=== PATIENT | male | born 1985 | race Hispanic/Latino ===

== ENCOUNTER 2018-12-29 05:47 | Emergency (ER) | payer BC, OTHER ==
[~2018-12-29 05:47] MED LIST: CLIN300C9 PO; METO25TA6 PO
[2018-12-29] MEDS ORDERED: SODIUM CHLORIDE 0.9% 1000ML 1,000 ML IV ONE ×2 (06:16→07:11)
[2018-12-29] MEDS ORDERED: CLINDAMYCIN 600 MG/D5% WATER 50 ML IV ONE (06:18)
[2018-12-29 06:32] LABS: BILIRUBIN,URINE Negative (NEGATIVE); COLOR,URINE Yellow (YELLOW); GLUCOSE, URINE (UA) Negative (NEGATIVE); KETONES,URINE Negative (NEGATIVE); LEUKOCYTE ESTERASE ,URINE Negative (NEGATIVE); NITRATE,URINE Negative (NEGATIVE); OCCULT BLOOD,URINE Negative (NEGATIVE); PROTEIN,URINE Negative (NEGATIVE); UROBILINOGEN,URINE 0.2 mg/dL (0.2-1.0)
[2018-12-29 06:36] LABS: INR 0.93 (0.85-1.15); PARTIAL THROMBOPLASTIN TIME 32.5 SEC (26.3-35.5); PROTHROMBIN TIME 9.8 SEC (9.6-11.6)
[2018-12-29 06:39] LABS: CREATININE 0.9 mg/dL (0.5-1.5); POTASSIUM 3.8 mmol/L (3.5-5.1)
[2018-12-29 06:44] LABS: BILIRUBIN,TOTAL 0.5 mg/dL (0.2-1.0); CRP QUANTITATIVE 14.3 mg/L (0.00-9.0); TOTAL PROTEIN, SERUM 8.9 g/dL (6.0-8.3)
[2018-12-29 06:52] LABS: APPEARANCE,URINE CLEAR (CLEAR)
[2018-12-29] MEDS ORDERED: KETOROLAC TROMETHAMINE 30MG/ML ONE (06:52)
[2018-12-29 07:09] LABS: BASOPHILS % (AUTO) 0.4 % (0.0-5.0); EOSINOPHILS % (AUTO) 1.9 % (0.0-8.0); MEAN CORPUSCULAR HEMOGLOBIN 29.2 pg (27.0-33.0); MEAN CORPUSCULAR HGB CONC 33.5 g/dL (32.0-36.0); MEAN CORPUSCULAR VOLUME 87.3 fL (79-99); MONOCYTES % (AUTO) 4.6 % (3.0-13.0); NEUTROPHILS % (AUTO) 85.1 % (40.0-77.0); NUCLEATED RED BLOOD CELLS 0.1 % (0.0-0.19); PLATELET COUNT (AUTO) 238 K/uL (130-400); RED BLOOD CELL COUNT(AUTO) 5.15 MIL/uL (4.50-6.20); RED CELL DISTRIBUTION WIDTH 13.8 % (11.0-15.5); WHITE BLOOD COUNT (AUTO) 15.1 K/uL (4.8-10.8)
[2018-12-29] MEDS ORDERED: LEVOFLOXACIN 500 MG TABLET ONE (07:11)
[2018-12-29 08:25] LABS: ERYTHROCYTE SEDIMENTATION RATE 23 MM/HR (0-15)
[2018-12-29] MEDS ORDERED: ACETAMINOPHEN EXTRA STRENGTH 500 MG TABLET ONE (08:37)
== END 2018-12-29 08:50 | disposition home or self-care (01) ==
LOC: EDH 05:47
DX: L03.116 Cellulitis of left lower limb (principal); J45.909 Unspecified asthma, uncomplicated; I10 Essential (primary) hypertension
CPT/HCPCS: 36415; 71045; 80053; 81003; 82550; 83605; 84484; 85025; 85610; 85651; 85730; 86140; 87040 ×2; 87804 ×2; 93005; 96361; 96365; 96375; 99284; J1885; J3490; J7030 ×2

== ENCOUNTER 2019-12-30 17:05 | Inpatient (IN) | payer OTHER, BC ==
[~2019-12-30] VITALS: Ht 182.9 cm; Wt 173.1 kg
[2019-12-30] MEDS ORDERED: CLINDAMYCIN 600 MG/D5% WATER 50 ML IV ONE (18:55)
[2019-12-30] MEDS ORDERED: SODIUM CHLORIDE 0.9% 1000ML 1,000 ML IV ONE ×2 (18:55→23:19)
[2019-12-30] MEDS ORDERED: KETOROLAC TROMETHAMINE 15MG/ML ONE (18:55)
[2019-12-30 18:58] LABS: BASOPHILS % (AUTO) 0.4 % (0.0-5.0); HEMATOCRIT 43.7 % (42-54); LYMPHOCYTES % (AUTO) 3.4 % (21.0-51.0); MEAN CORPUSCULAR HEMOGLOBIN 29.2 pg (27.0-33.0); MEAN CORPUSCULAR HGB CONC 34.1 g/dL (32.0-36.0); MEAN CORPUSCULAR VOLUME 85.7 fL (79-99); MONOCYTES % (AUTO) 4.7 % (3.0-13.0); PLATELET COUNT (AUTO) 246 K/uL (130-400); WHITE BLOOD COUNT (AUTO) 24.9 K/uL (4.8-10.8)
[2019-12-30 19:14] LABS: CREATININE 1.3 mg/dL (0.5-1.5); POTASSIUM 3.4 mmol/L (3.5-5.1)
[2019-12-30 19:19] LABS: ALBUMIN 3.8 g/dL (3.5-5.0); BILIRUBIN,TOTAL 0.9 mg/dL (0.2-1.0); TOTAL PROTEIN, SERUM 8.4 g/dL (6.0-8.3)
[2019-12-30] MEDS ORDERED: ZOSYN 3.375GM+NS 50ML 50 ML IV ONE (20:01)
[2019-12-30] MEDS ORDERED: VANCOMYCIN 1GM+NS 250ML 250 ML IV SCH (21:00)
[2019-12-30] MEDS ORDERED: ONDANSETRON HCL 4 MG/2 ML VIAL IV PRN (21:00)
[2019-12-30] MEDS: FAMOTIDINE 20MG TAB 20 MG TAB PO SCH (21:00)
[2019-12-30] MEDS ORDERED: ACETAMINOPHEN 325 MG TAB PO PRN (21:00)
[2019-12-30] MEDS ORDERED: LACTULOSE 20 GM/30 ML UDCUP PO PRN (21:00)
[2019-12-30] MEDS: ZOSYN 3.375GM+NS 50ML 50 ML IV SCH (21:00)
[2019-12-30] MEDS ORDERED: LIDOCAINE HCL-MPF 1% 2ML VIAL IV PRN (21:15)
[2019-12-30] MEDS ORDERED: POTASSIUM CHLORIDE 10MEQ/100ML 100 ML IV PRN (21:15)
[2019-12-30] MEDS ORDERED: VANCOMYCIN PROTOCOL PER PHARMACY IV SCH (21:15)
[2019-12-30] MEDS ORDERED: POTASSIUM CHLORIDE 10% ELIXIR 20 MEQ/15 ML UDCUP PO PRN (21:15)
[2019-12-30] MEDS ORDERED: VANCOMYCIN 1GM+NS 250ML 250 ML IV ONE (23:18)
[2019-12-30] MEDS ORDERED: ACETAMINOPHEN 325 MG TAB ONE (23:18)
[2019-12-31] VITALS (8 sets, daily range): BP systolic 138–179; BP diastolic 84–104
[2019-12-31] MEDS: SODIUM CHLORIDE 0.9% 1000ML 1,000 ML IV SCH ×3 (00:01→19:43)
--- NOTE | 2019-12-31 00:20 | NUR ---
admit note admit to room 417 via stretcher from er. patients at bedside, teach plan of care and expected outcome, patient verbalizes understanding via teach back
[2019-12-31] MEDS: ACETAMINOPHEN 325 MG TAB PO PRN (03:23)
[2019-12-31] MEDS: ZOSYN 3.375GM+NS 50ML 50 ML IV SCH ×2 (04:55→13:00)
[2019-12-31 05:42] LABS: BASOPHILS % (AUTO) 0.3 % (0.0-5.0); EOSINOPHILS % (AUTO) 0.7 % (0.0-8.0); MEAN CORPUSCULAR HEMOGLOBIN 29.4 pg (27.0-33.0); MEAN CORPUSCULAR HGB CONC 34.6 g/dL (32.0-36.0); MONOCYTES % (AUTO) 4.3 % (3.0-13.0); PLATELET COUNT (AUTO) 218 K/uL (130-400); RED BLOOD CELL COUNT(AUTO) 4.59 MIL/uL (4.50-6.20); RED CELL DISTRIBUTION WIDTH 13.3 % (11.0-15.5); WHITE BLOOD COUNT (AUTO) 21.8 K/uL (4.8-10.8)
[2019-12-31 05:54] LABS: CREATININE 1.2 mg/dL (0.5-1.5); POTASSIUM 3.1 mmol/L (3.5-5.1)
[2019-12-31] MEDS ORDERED: COMPOUND IV REFRIGERATED 1 EACH IVSOLN MISC PRN (06:15)
[2019-12-31] MEDS: POTASSIUM CHLORIDE 20 MEQ ERTAB PO PRN ×2 (06:57→10:09)
[2019-12-31] MEDS: ENOXAPARIN SODIUM 40 MG/0.4 ML SYRINGE SQ SCH (09:51)
[2019-12-31] MEDS: FAMOTIDINE 20MG TAB 20 MG TAB PO SCH ×2 (09:51→19:43)
[2019-12-31] MEDS: VANCOMYCIN 1.75 GM in SODIUM CHLORIDE 0.9% 250 ML IV SCH ×2 (10:06→19:44)
[2019-12-31] MEDS: CEFAZOLIN SODIUM 1 GM VIAL IVP SCH ×2 (13:35→21:46)
[2019-12-31] MEDS ORDERED: KETOROLAC TROMETHAMINE 15MG/ML IM PRN (15:45)
--- NOTE | 2019-12-31 15:56 | NUR ---
D/C PLAN CM spoke to pt regarding d/c planning. Pt is ind. and lives with father. States ex spouse can assist in care if needed. Denies having any home health or other services. Plan to home. No needs verbalized or identified. CM to f/u. Addendum: 12/31/19 at 1558 by JOHNNIE MONTES CM Amended: Links added.
[2019-12-31] MEDS: HYDRALAZINE HCL 20 MG/ML VIAL IV PRN (16:14)
[2019-12-31] MEDS: MORPHINE SULFATE 4 MG/1ML SYG IV PRN (16:15)
[2019-12-31] MEDS: LISINOPRIL 10 MG TABLET PO SCH (17:57)
[2020-01-01 04:00] VITALS: BP 180/90
[2020-01-01] MEDS: HYDRALAZINE HCL 20 MG/ML VIAL IV PRN (04:15)
--- NOTE | 2020-01-01 04:15 | NUR ---
b/p b/p 180/90 , asymptomatic , no sob, no c/o pain,hydralazine 10 mg ivp given slowly
[2020-01-01] MEDS: SODIUM CHLORIDE 0.9% 1000ML 1,000 ML IV SCH ×3 (04:27→20:49)
--- NOTE | 2020-01-01 05:00 | NUR ---
med effect b/p 144/80, no sob, no c/.o pain
[2020-01-01 05:25] LABS: BASOPHILS % (AUTO) 0.2 % (0.0-5.0); EOSINOPHILS % (AUTO) 0.5 % (0.0-8.0); HEMATOCRIT 37.4 % (42-54); LYMPHOCYTES % (AUTO) 9.7 % (21.0-51.0); MEAN CORPUSCULAR HEMOGLOBIN 29.1 pg (27.0-33.0); MEAN CORPUSCULAR HGB CONC 33.4 g/dL (32.0-36.0); MEAN CORPUSCULAR VOLUME 87.2 fL (79-99); MONOCYTES % (AUTO) 7.2 % (3.0-13.0); NEUTROPHILS % (AUTO) 81.8 % (40.0-77.0); PLATELET COUNT (AUTO) 183 K/uL (130-400); RED BLOOD CELL COUNT(AUTO) 4.29 MIL/uL (4.50-6.20); RED CELL DISTRIBUTION WIDTH 13.5 % (11.0-15.5); WHITE BLOOD COUNT (AUTO) 15.5 K/uL (4.8-10.8)
[2020-01-01] MEDS: CEFAZOLIN SODIUM 1 GM VIAL IVP SCH ×3 (05:43→22:00)
[2020-01-01 06:14] LABS: ALBUMIN 2.7 g/dL (3.5-5.0); BILIRUBIN,TOTAL 0.9 mg/dL (0.2-1.0); CREATININE 1.1 mg/dL (0.5-1.5); POTASSIUM 3.3 mmol/L (3.5-5.1); TOTAL PROTEIN, SERUM 7.2 g/dL (6.0-8.3)
[2020-01-01] MEDS: POTASSIUM CHLORIDE 20 MEQ ERTAB PO PRN ×3 (06:56→19:16)
[2020-01-01] MEDS: ACETAMINOPHEN 325 MG TAB PO PRN (06:58)
[2020-01-01 08:07] VITALS: BP 141/83
[2020-01-01] MEDS: FAMOTIDINE 20MG TAB 20 MG TAB PO SCH ×2 (09:40→20:31)
[2020-01-01] MEDS: LISINOPRIL 10 MG TABLET PO SCH (09:41)
[2020-01-01] MEDS: ENOXAPARIN SODIUM 40 MG/0.4 ML SYRINGE SQ SCH (09:42)
[2020-01-01] MEDS: VANCOMYCIN 2 GM in SODIUM CHLORIDE 0.9% 500ML 500 ML IV SCH ×2 (09:51→20:49)
[2020-01-01 11:37] VITALS: BP 123/79
[2020-01-01 16:19] VITALS: BP 147/79
[2020-01-01 19:54] VITALS: BP 153/82
[2020-01-01] MEDS: MORPHINE SULFATE 4 MG/1ML SYG IV PRN (22:00)
[2020-01-02] MEDS: MORPHINE SULFATE 4 MG/1ML SYG IV PRN (02:43)
[2020-01-02 02:55] VITALS: BP 129/69
[2020-01-02] MEDS: SODIUM CHLORIDE 0.9% 1000ML 1,000 ML IV SCH ×3 (04:57→21:16)
[2020-01-02] MEDS: CEFAZOLIN SODIUM 1 GM VIAL IVP SCH ×3 (04:57→21:16)
[2020-01-02 06:13] LABS: BASOPHILS % (AUTO) 0.3 % (0.0-5.0); EOSINOPHILS % (AUTO) 1.9 % (0.0-8.0); HEMATOCRIT 35.3 % (42-54); LYMPHOCYTES % (AUTO) 18.5 % (21.0-51.0); MEAN CORPUSCULAR HEMOGLOBIN 29.4 pg (27.0-33.0); MEAN CORPUSCULAR HGB CONC 33.7 g/dL (32.0-36.0); MEAN CORPUSCULAR VOLUME 87.2 fL (79-99); MONOCYTES % (AUTO) 7.9 % (3.0-13.0); PLATELET COUNT (AUTO) 192 K/uL (130-400); RED BLOOD CELL COUNT(AUTO) 4.05 MIL/uL (4.50-6.20); RED CELL DISTRIBUTION WIDTH 13.5 % (11.0-15.5)
[2020-01-02 06:21] LABS: ALBUMIN 2.6 g/dL (3.5-5.0); BILIRUBIN,TOTAL 0.4 mg/dL (0.2-1.0); CREATININE 0.9 mg/dL (0.5-1.5); POTASSIUM 3.5 mmol/L (3.5-5.1); TOTAL PROTEIN, SERUM 7.1 g/dL (6.0-8.3)
[2020-01-02] MEDS: POTASSIUM CHLORIDE 20 MEQ ERTAB PO PRN ×2 (06:45→14:36)
[2020-01-02 08:00] VITALS: BP 141/98
[2020-01-02] MEDS: FAMOTIDINE 20MG TAB 20 MG TAB PO SCH ×2 (09:16→21:16)
[2020-01-02] MEDS: LISINOPRIL 10 MG TABLET PO SCH (09:16)
[2020-01-02] MEDS: ENOXAPARIN SODIUM 40 MG/0.4 ML SYRINGE SQ SCH (09:17)
[2020-01-02] MEDS: VANCOMYCIN 2 GM in SODIUM CHLORIDE 0.9% 500ML 500 ML IV SCH ×2 (09:21→22:28)
[2020-01-02 11:45] VITALS: BP 119/67
[2020-01-02 16:00] VITALS: BP 115/55
[2020-01-02 19:35] VITALS: BP 141/88
[2020-01-02 23:24] VITALS: BP 144/80
[2020-01-03 03:45] VITALS: BP 128/74
[2020-01-03 04:47] LABS: BASOPHILS % (AUTO) 0.5 % (0.0-5.0); EOSINOPHILS % (AUTO) 3.4 % (0.0-8.0); HEMATOCRIT 35.9 % (42-54); LYMPHOCYTES % (AUTO) 27.5 % (21.0-51.0); MEAN CORPUSCULAR HEMOGLOBIN 28.8 pg (27.0-33.0); MEAN CORPUSCULAR HGB CONC 32.9 g/dL (32.0-36.0); MEAN CORPUSCULAR VOLUME 87.6 fL (79-99); MONOCYTES % (AUTO) 7.8 % (3.0-13.0); NEUTROPHILS % (AUTO) 59.6 % (40.0-77.0); PLATELET COUNT (AUTO) 233 K/uL (130-400); RED CELL DISTRIBUTION WIDTH 13.4 % (11.0-15.5); WHITE BLOOD COUNT (AUTO) 8.1 K/uL (4.8-10.8)
[2020-01-03 05:21] LABS: ALBUMIN 2.6 g/dL (3.5-5.0); BILIRUBIN,TOTAL 0.3 mg/dL (0.2-1.0); CREATININE 0.9 mg/dL (0.5-1.5); POTASSIUM 3.9 mmol/L (3.5-5.1); TOTAL PROTEIN, SERUM 7.1 g/dL (6.0-8.3)
[2020-01-03] MEDS: CEFAZOLIN SODIUM 1 GM VIAL IVP SCH ×3 (05:23→21:38)
[2020-01-03] MEDS: SODIUM CHLORIDE 0.9% 1000ML 1,000 ML IV SCH ×2 (05:24→21:47)
[2020-01-03] MEDS: VANCOMYCIN 1.5 GM in SODIUM CHLORIDE 0.9% 250 ML IV SCH ×3 (06:53→21:38)
[2020-01-03 07:30] VITALS: BP 132/74
[2020-01-03] MEDS: LISINOPRIL 10 MG TABLET PO SCH (08:19)
[2020-01-03] MEDS: FAMOTIDINE 20MG TAB 20 MG TAB PO SCH ×2 (08:19→21:38)
[2020-01-03] MEDS: ENOXAPARIN SODIUM 40 MG/0.4 ML SYRINGE SQ SCH (08:20)
[2020-01-03 11:00] VITALS: BP 132/71
[2020-01-03 16:00] VITALS: BP 154/90
[2020-01-03 17:26] LABS: INR 0.95 (0.85-1.15)
[2020-01-03 19:40] VITALS: BP 159/84
[2020-01-03 23:47] VITALS: BP 141/75
[2020-01-04 03:49] VITALS: BP 155/79
[2020-01-04 05:05] LABS: BASOPHILS % (AUTO) 0.6 % (0.0-5.0); EOSINOPHILS % (AUTO) 3.4 % (0.0-8.0); HEMATOCRIT 36.8 % (42-54); LYMPHOCYTES % (AUTO) 24.5 % (21.0-51.0); MEAN CORPUSCULAR HEMOGLOBIN 28.7 pg (27.0-33.0); MEAN CORPUSCULAR HGB CONC 33.2 g/dL (32.0-36.0); MEAN CORPUSCULAR VOLUME 86.6 fL (79-99); MONOCYTES % (AUTO) 8.2 % (3.0-13.0); NEUTROPHILS % (AUTO) 61.5 % (40.0-77.0); PLATELET COUNT (AUTO) 258 K/uL (130-400); RED BLOOD CELL COUNT(AUTO) 4.25 MIL/uL (4.50-6.20); RED CELL DISTRIBUTION WIDTH 13.2 % (11.0-15.5); WHITE BLOOD COUNT (AUTO) 10.1 K/uL (4.8-10.8)
[2020-01-04 05:24] LABS: POTASSIUM 4.2 mmol/L (3.5-5.1)
[2020-01-04] MEDS: VANCOMYCIN 1.5 GM in SODIUM CHLORIDE 0.9% 250 ML IV SCH ×3 (06:58→23:06)
[2020-01-04] MEDS: CEFAZOLIN SODIUM 1 GM VIAL IVP SCH ×3 (06:59→20:02)
[2020-01-04 08:12] VITALS: BP 137/84
[2020-01-04] MEDS: LISINOPRIL 10 MG TABLET PO SCH (09:28)
[2020-01-04] MEDS: FAMOTIDINE 20MG TAB 20 MG TAB PO SCH ×2 (09:28→20:02)
[2020-01-04] MEDS: ENOXAPARIN SODIUM 40 MG/0.4 ML SYRINGE SQ SCH (11:35)
[2020-01-04] MEDS: SODIUM CHLORIDE 0.9% 1000ML 1,000 ML IV SCH ×2 (11:36→20:03)
[2020-01-04 11:40] VITALS: BP 140/65
--- NOTE | 2020-01-04 14:20 | NUR ---
PHARMACY CALLED, NO VANCO AVAILABLE AT FLOOR SPOKE WITH [facility] STATES WILL DELIVER
--- NOTE | 2020-01-04 15:20 | NUR ---
PER DR. MAURER CANCEL PICC LINE
--- NOTE | 2020-01-04 16:05 | NUR ---
NO VANCO AVAILABLE, INFORMED [facility] STATES WILL CHECK AND CALL YOU BACK.
[2020-01-04 16:54] VITALS: BP 147/95
--- NOTE | 2020-01-04 17:36 | NUR ---
[facility] CALLED BACK STATES [facility] IS AT 4TH FLOOR POD A & B.
[2020-01-04 20:00] VITALS: BP 131/73
[2020-01-05] VITALS: BP 152/98
--- NOTE | 2020-01-05 01:15 | NUR ---
EMILIE ROLAND RESTING IN BED WATCHING TV AT THIS TIME. NO COMPLAINTS OF PAIN VOICED AT THIS TIME. VITALS STABLE. RESP EVEN AND UNLABORED. NO SOB. ON ROOM AIR. CONTINUES WITH NS INFUSING AT 125ML/HR. NO ADVERSE REACTIONS NOTED FROM IV ABT. UP WITH MINIMAL ASSIST. LLE ELEVATED ON PILLOW. REDNESS AND WARM TO TOUCH TO LLE NOTED. MD AND PATIENT AWARE. SKIN INTACT. FALL PRECAUTIONS IN PLACE. NO SIGNS OF DISTRESS NOTED. CALL LIGHT WITHIN REACH. WILL CONTINUE TO BE OBSERVED. Addendum: 01/05/20 at 0120 by KE BHAT RN RN Amended: Links added.
[2020-01-05 03:59] VITALS: BP 140/79
[2020-01-05] MEDS: SODIUM CHLORIDE 0.9% 1000ML 1,000 ML IV SCH ×2 (04:53→09:05)
[2020-01-05] MEDS: CEFAZOLIN SODIUM 1 GM VIAL IVP SCH ×2 (05:23→14:49)
[2020-01-05] MEDS: VANCOMYCIN 1.5 GM in SODIUM CHLORIDE 0.9% 250 ML IV SCH (05:53)
[2020-01-05 08:20] VITALS: BP 137/84
[2020-01-05] MEDS: FAMOTIDINE 20MG TAB 20 MG TAB PO SCH (09:02)
[2020-01-05] MEDS: LISINOPRIL 10 MG TABLET PO SCH (09:03)
[2020-01-05] MEDS: ENOXAPARIN SODIUM 40 MG/0.4 ML SYRINGE SQ SCH (09:05)
[2020-01-05 12:22] VITALS: BP 114/78
[2020-01-05] MEDS ORDERED: LISI10TA7 PO (14:11)
--- NOTE | 2020-01-05 16:00 | NUR ---
D/C INSTRUCTIONS GIVEN USING TEACH BACK TECHNIQUE RE: NEW MEDS, HOME MEDS, S/S TO WATCH FOR AND WHEN TO CALL MD OR ID FOLLOW-UP APPOINTMENT ON 02/07/20 @ 12 NOON IF YOU HAVE ANY QUESTIONS PLEASE CALL HIS OFFICE AT [phone] FOLLOW UP WITH YOUR PRIMARY IN 2-4 DAYS. IN REDNESS OR HOT TO TOUCH WORSENS CALL YOUR PRIMARY DOCTOR. IV OUT INTACT, NO DISTRESS, AAOX3, DENIES ANY NEEDS. AWARE OF FOLLOW UPS.
== END 2020-01-05 16:36 | disposition home or self-care (01) | DRG 872 ==
LOC: EDH 17:05 → EDHIP 20:53 → 4CH 23:20
PROVIDERS: ADMIT Family Medicine; ATTEND Family Medicine
DX: A41.9 Sepsis, unspecified organism (principal); L03.116 Cellulitis of left lower limb; N17.9 Acute kidney failure, unspecified; Z68.43 Body mass index [BMI] 50.0-59.9, adult; E87.6 Hypokalemia; I25.10 Atherosclerotic heart disease of native coronary artery without angina pectoris; G30.9 Alzheimer's disease, unspecified; F17.200 Nicotine dependence, unspecified, uncomplicated; T63.301A Toxic effect of unspecified spider venom, accidental (unintentional), initial encounter; I10 Essential (primary) hypertension; E66.01 Morbid (severe) obesity due to excess calories; E11.9 Type 2 diabetes mellitus without complications; F02.80 Dementia in other diseases classified elsewhere, unspecified severity, without behavioral disturbance, psychotic disturbance, mood disturbance, and anxiety; J44.9 Chronic obstructive pulmonary disease, unspecified; Z82.49 Family history of ischemic heart disease and other diseases of the circulatory system; Z82.3 Family history of stroke; Y92.89 Other specified places as the place of occurrence of the external cause
CPT/HCPCS: 36415; 71045; 73700; 80048; 80053; 80202; 83605; 83735; 85025; 85610; 87040; 93005; 93970; G0378; J0360; J0690; J1650; J1885; J2270; J2543; J3370; J3490; J7030; J7040

== ENCOUNTER 2024-03-18 12:17 | Inpatient (IN) | payer BC ==
[~2024-03-18] VITALS: Ht 182.9 cm; Wt 182.7 kg
[2024-03-18] VITALS (7 sets, daily range): BP systolic 154; BP diastolic 80–91; PULSE 73–94; RESP 20–23; TEMP 99.5; O2SAT 96–98
[~2024-03-18 12:17] MED LIST changes: -CLIN300C9 PO; +LOSA25TA41 PO; -METO25TA6 PO
[2024-03-18 13:43] LABS: BASOPHILS # (AUTO) 0.06 K/uL (0.00-0.20); BASOPHILS % (AUTO) 0.3 % (0.0-5.0); EOSINOPHILS # (AUTO) 0.08 K/uL (0.00-0.70); EOSINOPHILS % (AUTO) 0.4 % (0.0-8.0); HEMATOCRIT 39.7 % (42-54); IMMATURE GRANULOCYTE ABSOLUTE 0.21 K/uL (0-1); LYMPHOCYTES # (AUTO) 0.7 K/uL (1.0-4.8); LYMPHOCYTES % (AUTO) 3.3 % (21.0-51.0); MEAN CORPUSCULAR HEMOGLOBIN 30.2 pg (27.0-33.0); MEAN CORPUSCULAR HGB CONC 34.3 g/dL (32.0-36.0); MONOCYTES # (AUTO) 0.8 K/uL (0.1-1.0); MONOCYTES % (AUTO) 3.5 % (3.0-13.0); NEUTROPHILS # (AUTO) 19.6 K/uL (1.8-7.7); NEUTROPHILS % (AUTO) 91.5 % (40.0-77.0); PLATELET COUNT (AUTO) 194 K/uL (130-400); RED BLOOD CELL COUNT(AUTO) 4.51 MIL/uL (4.50-6.20); RED CELL DISTRIBUTION WIDTH 13.6 % (11.0-15.5); WHITE BLOOD COUNT (AUTO) 21.5 K/uL (4.8-10.8)
[2024-03-18 13:45] LABS: CREATININE 1.1 mg/dL (0.5-1.3); POTASSIUM 3.5 mmol/L (3.5-5.1)
[2024-03-18 13:49] LABS: ALBUMIN 3.2 g/dL (3.5-5.0); BILIRUBIN,TOTAL 1.2 mg/dL (0.2-1.0); TOTAL PROTEIN, SERUM 7.6 g/dL (6.0-8.3)
[2024-03-18] MEDS ORDERED: CEFTRIAXONE 2GM VIAL IVPB ONE (14:00)
[2024-03-18] MEDS: CEFEPIME HCL 2 GM VIAL IVPB SCH (14:30)
[2024-03-18] MEDS ORDERED: ONDANSETRON 4MG INJ IVP PRN (14:30)
[2024-03-18] MEDS: 0.9%NACL 1000ML 2,328 ML IV ONE (14:30)
[2024-03-18] MEDS ORDERED: VANCOMYCIN PROTOCOL PER PHARMACY IV SCH (14:30)
[2024-03-18] MEDS: ACETAMINOPHEN 325 MG TAB PO PRN (14:31)
[2024-03-18] MEDS: VANCOMYCIN 2GM/500 ML BAG 500 ML IV ONE (14:58)
[2024-03-18] MEDS ORDERED: IPRATROPIUM 0.5 MG/2.5 ML INH IH PRN (15:30)
[2024-03-18 16:03] LABS: INR 1.01 (0.85-1.15); PROTHROMBIN TIME 11.9 SEC (9.6-11.6)
[2024-03-18 16:04] LABS: PARTIAL THROMBOPLASTIN TIME 37.5 SEC (26.3-35.5)
[2024-03-18 16:11] LABS: APPEARANCE,URINE CLEAR (CLEAR); BILIRUBIN,URINE NEGATIVE (NEGATIVE); COLOR,URINE YELLOW (YELLOW); GLUCOSE, URINE (UA) NEGATIVE (NEGATIVE); KETONES,URINE NEGATIVE (NEGATIVE); LEUKOCYTE ESTERASE ,URINE NEGATIVE Leu/uL (NEGATIVE); NITRATE,URINE NEGATIVE (NEGATIVE); OCCULT BLOOD,URINE NEGATIVE (NEGATIVE); PH,URINE 8.5 (5.0-8.0); PROTEIN,URINE 50 mg/dL (NEGATIVE); UROBILINOGEN,URINE 0.2 mg/dL (0.2-1.0)
[2024-03-18 16:21] LABS: ADD UA MICROSCOPIC YES
[2024-03-18] MEDS ORDERED: POTASSIUM CHLORIDE 20MEQ/100ML 100 ML IV PRN (16:30)
[2024-03-18 16:38] LABS: MUCUS,URINE RARE LPF (None Seen); SQUAMOUS EPITHELIAL CELL,UR RARE /HPF (0-2)
[2024-03-18] MEDS: POTASSIUM CHLORIDE 10% ELIXIR 20 MEQ/15 ML UDCUP PO PRN (16:55)
[2024-03-18] MEDS: MAGNESIUM 2GM PREMIX 50ML 50 ML IV SCH (16:56)
[2024-03-18] MEDS: 0.9%NACL 1000ML 1,000 ML IV SCH (17:53)
[2024-03-18 19:50] LABS: CREATININE 1.1 mg/dL (0.5-1.3); POTASSIUM 3.5 mmol/L (3.5-5.1)
[2024-03-18 19:54] LABS: BILIRUBIN,TOTAL 1.2 mg/dL (0.2-1.0); TOTAL PROTEIN, SERUM 7.2 g/dL (6.0-8.3)
[2024-03-18] MEDS: FAMOTIDINE 20MG TAB PO SCH (21:18)
[2024-03-19] VITALS (12 sets, daily range): BP systolic 130–167; BP diastolic 60–89; PULSE 75–90; RESP 18–20; O2SAT 95–99
[2024-03-19] MEDS: VANCOMYCIN 1.75 GM/250 ML BAG 250 ML IV SCH ×2 (02:31→23:19)
[2024-03-19 03:37] LABS: BASOPHILS # (AUTO) 0.04 K/uL (0.00-0.20); BASOPHILS % (AUTO) 0.3 % (0.0-5.0); EOSINOPHILS # (AUTO) 0.15 K/uL (0.00-0.70); HEMATOCRIT 36.2 % (42-54); IMMATURE GRANULOCYTE ABSOLUTE 0.09 K/uL (0-1); LYMPHOCYTES # (AUTO) 1.3 K/uL (1.0-4.8); LYMPHOCYTES % (AUTO) 8.3 % (21.0-51.0); MEAN CORPUSCULAR HEMOGLOBIN 29.1 pg (27.0-33.0); MEAN CORPUSCULAR HGB CONC 33.1 g/dL (32.0-36.0); MEAN CORPUSCULAR VOLUME 87.9 fL (79-99); MONOCYTES % (AUTO) 6.4 % (3.0-13.0); NEUTROPHILS # (AUTO) 12.8 K/uL (1.8-7.7); NEUTROPHILS % (AUTO) 83.4 % (40.0-77.0); PLATELET COUNT (AUTO) 161 K/uL (130-400); RED BLOOD CELL COUNT(AUTO) 4.12 MIL/uL (4.50-6.20); RED CELL DISTRIBUTION WIDTH 13.8 % (11.0-15.5); WHITE BLOOD COUNT (AUTO) 15.3 K/uL (4.8-10.8)
[2024-03-19 03:56] LABS: POTASSIUM 3.6 mmol/L (3.5-5.1)
[2024-03-19 03:57] LABS: ABG BASE EXCESS -2.2 mmol/L (-2.0-3.0); ABG HCO3 22.4 mmol/L (21.0-28.0); ABG OXYGEN SATURATION 95.9 % (95.0-99.0); ABG PCO2 38 mmHg (35-48); ABG PH 7.389 (7.35-7.450); CPAP, BG 8 cm H2O; DEVICE COMMENT RR RNANDY; PO2, ARTERIAL BG 80.7 mmHg (83.0-108.0); VENT MODE, BG CPAP (ROOM AIR)
[2024-03-19 04:00] LABS: ALBUMIN 2.6 g/dL (3.5-5.0); MAGNESIUM 2.1 mg/dL (1.80-2.40); TOTAL PROTEIN, SERUM 6.7 g/dL (6.0-8.3)
[2024-03-19 07:23] LABS: AMPHET/METH SCREEN,URINE NEGATIVE (NEGATIVE); BARBITURATE SCREEN, URINE NEGATIVE (NEGATIVE); BENZODIAZEPINES SCREEN,URINE NEGATIVE (NEGATIVE); CANNABINOID SCREEN,URINE NEGATIVE (NEGATIVE); COCAINE SCREEN,URINE NEGATIVE (NEGATIVE); OPIATE SCREEN,URINE NEGATIVE (NEGATIVE); PHENCYCLIDINE SCREEN,URINE NEGATIVE (NEGATIVE)
[2024-03-19] MEDS: ENOXAPARIN SODIUM 40 MG/0.4 ML SYRINGE SQ SCH (09:26)
[2024-03-20] VITALS (9 sets, daily range): BP systolic 137–158; BP diastolic 61–90; PULSE 71–77; RESP 18–20; O2SAT 97–99
[2024-03-20] MEDS: LOSARTAN 25 MG TABLET PO ONE ×2 (00:16→00:23)
[2024-03-20] MEDS ORDERED: HYDRALAZINE 20MG/ML VIAL IV PRN (00:30)
[2024-03-20 03:50] LABS: BASOPHILS # (AUTO) 0.03 K/uL (0.00-0.20); BASOPHILS % (AUTO) 0.3 % (0.0-5.0); EOSINOPHILS # (AUTO) 0.28 K/uL (0.00-0.70); EOSINOPHILS % (AUTO) 2.5 % (0.0-8.0); HEMATOCRIT 35.8 % (42-54); IMMATURE GRANULOCYTE ABSOLUTE 0.05 K/uL (0-1); LYMPHOCYTES # (AUTO) 1.7 K/uL (1.0-4.8); LYMPHOCYTES % (AUTO) 15.3 % (21.0-51.0); MEAN CORPUSCULAR HEMOGLOBIN 30.1 pg (27.0-33.0); MEAN CORPUSCULAR HGB CONC 34.1 g/dL (32.0-36.0); MEAN CORPUSCULAR VOLUME 88.4 fL (79-99); MONOCYTES # (AUTO) 0.7 K/uL (0.1-1.0); MONOCYTES % (AUTO) 6.6 % (3.0-13.0); NEUTROPHILS # (AUTO) 8.4 K/uL (1.8-7.7); NEUTROPHILS % (AUTO) 74.9 % (40.0-77.0); PLATELET COUNT (AUTO) 164 K/uL (130-400); RED BLOOD CELL COUNT(AUTO) 4.05 MIL/uL (4.50-6.20); RED CELL DISTRIBUTION WIDTH 13.6 % (11.0-15.5); WHITE BLOOD COUNT (AUTO) 11.2 K/uL (4.8-10.8)
[2024-03-20 04:22] LABS: ALBUMIN 2.7 g/dL (3.5-5.0); BILIRUBIN,TOTAL 0.7 mg/dL (0.2-1.0); CREATININE 0.9 mg/dL (0.5-1.3); POTASSIUM 3.3 mmol/L (3.5-5.1)
[2024-03-20] MEDS: KCL 20 MEQ ERTAB PO PRN (04:58)
[2024-03-20] MEDS: LOSARTAN 25 MG TABLET PO SCH (08:58)
[2024-03-20] MEDS: VANCOMYCIN 1.75 GM/250 ML BAG 250 ML IV SCH (08:59)
[2024-03-21] VITALS (12 sets, daily range): BP systolic 122–182; BP diastolic 68–91; PULSE 66–79; RESP 17–22; O2SAT 98–99
[2024-03-21 03:51] LABS: BASOPHILS # (AUTO) 0.04 K/uL (0.00-0.20); BASOPHILS % (AUTO) 0.4 % (0.0-5.0); EOSINOPHILS # (AUTO) 0.37 K/uL (0.00-0.70); EOSINOPHILS % (AUTO) 3.8 % (0.0-8.0); HEMATOCRIT 37.7 % (42-54); IMMATURE GRANULOCYTE ABSOLUTE 0.08 K/uL (0-1); LYMPHOCYTES # (AUTO) 2.4 K/uL (1.0-4.8); LYMPHOCYTES % (AUTO) 24.3 % (21.0-51.0); MEAN CORPUSCULAR HEMOGLOBIN 29.3 pg (27.0-33.0); MEAN CORPUSCULAR HGB CONC 33.7 g/dL (32.0-36.0); MEAN CORPUSCULAR VOLUME 87.1 fL (79-99); MONOCYTES # (AUTO) 0.6 K/uL (0.1-1.0); MONOCYTES % (AUTO) 6.3 % (3.0-13.0); NEUTROPHILS # (AUTO) 6.2 K/uL (1.8-7.7); NEUTROPHILS % (AUTO) 64.4 % (40.0-77.0); PLATELET COUNT (AUTO) 219 K/uL (130-400); RED BLOOD CELL COUNT(AUTO) 4.33 MIL/uL (4.50-6.20); RED CELL DISTRIBUTION WIDTH 13.4 % (11.0-15.5); WHITE BLOOD COUNT (AUTO) 9.7 K/uL (4.8-10.8)
[2024-03-21 04:14] LABS: ALBUMIN 2.8 g/dL (3.5-5.0); BILIRUBIN,TOTAL 0.5 mg/dL (0.2-1.0); TOTAL PROTEIN, SERUM 7.3 g/dL (6.0-8.3)
[2024-03-21] MEDS ORDERED: VANCOMYCIN 1.75 GM/250 ML BAG 250 ML IV SCH (17:30)
[2024-03-21] MEDS: VANCOMYCIN 1.25 GM/250 ML BAG 250 ML IV SCH (20:01)
[2024-03-22] VITALS (7 sets, daily range): BP systolic 144–154; BP diastolic 70–85; PULSE 62–77; RESP 15–20; O2SAT 97–98
[2024-03-22 05:43] LABS: BASOPHILS # (AUTO) 0.06 K/uL (0.00-0.20); BASOPHILS % (AUTO) 0.8 % (0.0-5.0); EOSINOPHILS % (AUTO) 3.9 % (0.0-8.0); HEMATOCRIT 40.6 % (42-54); IMMATURE GRANULOCYTE ABSOLUTE 0.11 K/uL (0-1); LYMPHOCYTES # (AUTO) 2.2 K/uL (1.0-4.8); LYMPHOCYTES % (AUTO) 27.8 % (21.0-51.0); MEAN CORPUSCULAR HGB CONC 34.2 g/dL (32.0-36.0); MEAN CORPUSCULAR VOLUME 87.5 fL (79-99); MONOCYTES # (AUTO) 0.6 K/uL (0.1-1.0); NEUTROPHILS # (AUTO) 4.5 K/uL (1.8-7.7); NEUTROPHILS % (AUTO) 58.1 % (40.0-77.0); PLATELET COUNT (AUTO) 231 K/uL (130-400); RED BLOOD CELL COUNT(AUTO) 4.64 MIL/uL (4.50-6.20); RED CELL DISTRIBUTION WIDTH 13.2 % (11.0-15.5); WHITE BLOOD COUNT (AUTO) 7.7 K/uL (4.8-10.8)
[2024-03-22 06:06] LABS: CREATININE 0.8 mg/dL (0.5-1.3); PHOSPHORUS 3.7 mg/dL (2.5-4.9); POTASSIUM 3.7 mmol/L (3.5-5.1)
== END 2024-03-22 15:50 | disposition home or self-care (01) | DRG 871 ==
LOC: EDH 12:17 → EDHIP 14:23 → 4AH 17:30
PROVIDERS: ADMIT Internal Medicine; ATTEND Internal Medicine
PROC: 5A09357 Assistance with Respiratory Ventilation, Less than 24 Consecutive Hours, Continuous Positive Airway Pressure (ICD-10-PCS; principal; 2024-03-19)
PROC: 5A09357 Assistance with Respiratory Ventilation, Less than 24 Consecutive Hours, Continuous Positive Airway Pressure (ICD-10-PCS; 2024-03-19)
PROC: 5A09357 Assistance with Respiratory Ventilation, Less than 24 Consecutive Hours, Continuous Positive Airway Pressure (ICD-10-PCS; 2024-03-19)
DX: A41.9 Sepsis, unspecified organism (principal); I50.33 Acute on chronic diastolic (congestive) heart failure; L03.116 Cellulitis of left lower limb; E87.20 Acidosis, unspecified; Z68.43 Body mass index [BMI] 50.0-59.9, adult; R65.20 Severe sepsis without septic shock; G47.33 Obstructive sleep apnea (adult) (pediatric); E66.01 Morbid (severe) obesity due to excess calories; I87.2 Venous insufficiency (chronic) (peripheral); I11.0 Hypertensive heart disease with heart failure; E11.9 Type 2 diabetes mellitus without complications; E83.42 Hypomagnesemia; Z82.49 Family history of ischemic heart disease and other diseases of the circulatory system; Z79.899 Other long term (current) drug therapy; Z63.5 Disruption of family by separation and divorce
CPT/HCPCS: 36415; 36600; 71045; 73700; 80048; 80053; 80202; 80305; 81001; 82803; 83605; 83735; 84100; 84145; 85025; 85610; 85651; 85730; 86140; 87040; 87641; 93005; 93306; 93356; 93971; 94660; 94664; G0378; J0692; J1650; J3475; 3370; J3370

== ENCOUNTER 2025-02-27 15:26 | Emergency (ER) | payer BC, OTHER ==
[~2025-02-27] VITALS: Ht 182.9 cm; Wt 199.6 kg
[~2025-02-27 15:26] MED LIST changes: +FLUT16H NASAL; +MECL-302 PO; +PRED20TA3 PO
--- NOTE | 2025-02-27 15:55 | ERN ---
ED Note History of Present Illness Stated Complaint: SEPSIS ON LEG Chief Complaint: Cellulitis Time Seen by MD: 15:33 Dictation: Patient is a 39-year-old male coming in today with erythema swelling and pain to the left thigh onset last night. He also states he had a high fever with chills however he does not have a thermometer. States he has a diabetic with history of sepsis to the same leg. Primary care doctor Allergies: Coded Allergies: No Known Allergies (Unverified Allergy, Unknown, 11/04/18) Home Meds Active Scripts Fluticasone Propionate (Flonase Nasal Noble) 50 Mcg/Actuation Noble, 1 SPRY NASAL DAILY, #1 SPRAY 0 Refills Prov:DALLAS HAQ MD 05/06/24 Prednisone (Prednisone) 20 Mg Tablet, 1 TAB PO AD for 3 Days, #6 TAB 0 Refills TAKE 1 TAB BY MOUTH THREE TIMES PER DAY X1 DAYS, THEN TAKE 1 TAB BY MOUTH TWICE A DAY X1 DAYS, THEN TAKE 1 TAB BY MOUTH ONCE A DAY X1 DAY. Prov:DALLAS HAQ MD 05/06/24 Meclizine HCl (Meclizine HCl) 25 Mg Tablet, 25 MG PO TIDP PRN for VERTIGO, #30 TAB 0 Refills Prov:DALLAS HAQ MD 05/06/24 Losartan Potassium (Losartan Potassium) 25 Mg Tablet, 25 MG PO DAILY for 30 Days, #30 TAB Prov:MEME JIMENES NP 02/18/24 Past Medical History Past Medical History: Asthma, Hypertension Additional Past Medical Hx: Morbidly obese Surgical History: Other Surgical History Other: LEFT SHOULDER SX Family History: Negative Social History: Negative RN Note Reviewed/Agreed w/PFSH: Yes Review of System Dictation CONSTITUTIONAL: Negative except for HPI HEAD/FACE: Negative except for HPI EENT: Negative except for HPI RESPIRATORY: Negative except for HPI GASTROINTESTINAL/ABDOMINAL: Negative except for HPI GENITOURINARY: Negative except for HPI MUSCULOSKELETAL: Negative except for HPI left medial thigh erythema tenderness. No calf tender INTEGUMENTARY: Negative except for HPI NEUROLOGICAL/PSYCH: Negative except for HPI HEMATOLOGIC/LYMPHATIC: Negative except for HPI All Systems Negative, Except as noted above. 13 point review of systems assessed and all negative except for above. Initial Vital Sign VS Vital Signs Date Time Temp Pulse Resp B/P (MAP) Pulse Ox O2 Delivery O2 Flow Rate FiO2 4/21/25 15:30 98.6 82 18 154/99 96 Room Air 0 Physical Exam Dictation Vital Signs reviewed General Appearance: Alert, oriented x 3, mild acute distress, well developed, nourished. Morbidly obese Head and Face: non-traumatic. Eyes: PERRL, pink conjunctivas, eyelid no trauma, anterior chamber with arcus senilis. Ears: Pinnas intact and no signs of trauma or erythema ear canals clear and no discharge TM no erythema Nose: No discharge, no bleeding. Oropharynx: Mouth normal, tongue pink, pharynx clear,no erythema, tonsils no exudates, no abscesses noted, mucous membrane moist Neck: Supple, non-tender, no thyromegaly, no masses, no JVD, no bruits Breast:Deferred Chest:No tenderness, no crepitus, no paradoxical movement, no retractions Lungs:Clear, well-ventilated, symmetric, no rales, no wheezing, no rhonchi, no stridor, good breath sounds bilaterally Heart: Regular rate, regular rhythm, no murmur, no gallops Vascular: no peripheral edema, Abdomen: Soft, positive bowel sounds, nondistended, no guarding, nontender, no rebound, no masses no hepatomegaly, no splenomegaly, no Pierce's sign, no hernias. Rectal: Deferred Genital: Deferred Neurological: Normal speech, motor function intact, sensory function intact Musculoskeletal: Neck nontender, full range of motion, back nontender, full range of motion, Extremities: Left medial thigh swelling tenderness posterior thigh tenderness. Negative Homans sign distal neurovascular CMS intact Skin: Color pink, dry, no turgor, no rash, no lacerations, no abrasions, no contusions. Lymphatic: Deferred Results (Laboratory/Radiology) Laboratory/Radiology Laboratory Tests Test 02/27/25 16:17 White Blood Count 13.0 K/uL (4.8-10.8) H Red Blood Count 4.68 MIL/uL (4.50-6.20) Hemoglobin 13.8 g/dL (14.0-18.0) L Hematocrit 41.2 % (42-54) L Mean Corpuscular Volume 88.0 fL (79-99) Mean Corpuscular Hemoglobin 29.5 pg (27.0-33.0) Mean Corpuscular Hemoglobin Concent 33.5 g/dL (32.0-36.0) Red Cell Distribution Width 13.8 % (11.0-15.5) Platelet Count 195 K/uL (130-400) Mean Platelet Volume 9.5 fL (7.5-10.5) Immature Granulocyte % (Auto) 1.4 % (0-1) H Neutrophils (%) (Auto) 81.1 % (40.0-77.0) H Lymphocytes (%) (Auto) 10.5 % (21.0-51.0) L Monocytes (%) (Auto) 6.0 % (3.0-13.0) Eosinophils (%) (Auto) 0.6 % (0.0-8.0) Basophils (%) (Auto) 0.4 % (0.0-5.0) Neutrophils # (Auto) 10.6 K/uL (1.8-7.7) H Lymphocytes # (Auto) 1.4 K/uL (1.0-4.8) Monocytes # (Auto) 0.8 K/uL (0.1-1.0) Eosinophils # (Auto) 0.08 K/uL (0.00-0.70) Basophils # (Auto) 0.05 K/uL (0.00-0.20) Absolute Immature Granulocyte (auto 0.18 K/uL (0-1) Nucleated Red Blood Cells 0.0 % (0.0-0.19) Sodium Level 139 mmol/L (136-145) Potassium Level 3.4 mmol/L (3.5-5.1) L Chloride Level 103 mmol/L (101-111) Carbon Dioxide Level 28 mmol/L (21-32) Blood Urea Nitrogen 18 mg/dL (7-18) Creatinine 0.9 mg/dL (0.5-1.3) Glomerular Filtration Rate Calc 110 mL/min (>90) Random Glucose 92 mg/dL (70-105) Lactic Acid Level 1.1 mmol/L (0.8-2.5) Total Calcium 8.1 mg/dL (8.5-10.1) L US VENOUS DOPPLER UNILATERAL HISTORY: Left leg swelling COMPARISON: None TECHNIQUE: Left lower extremity venous Doppler ultrasound study was performed. FINDINGS: Left common femoral, femoral, popliteal, and posterior tibial veins are visualized. Normal flow with augmentation and compressibilities are demonstrated. Left greater saphenous vein is patent. The study is limited due to patient's large body habitus. IMPRESSION: 1. No evidence of deep venous thrombosis is seen. Labs Reviewed?: Yes ED Course ED Course Orders Procedure Category Date Status Time Cbc With Differential LAB 02/27/25 Complete 15:53 Blood Cult KARINA 02/27/25 In Process 15:53 Urinalysis Profile LAB 02/27/25 Logged 15:53 Lactic Acid LAB 02/27/25 Complete 15:53 Basic Metabolic Panel LAB 02/27/25 Complete 15:53 Us Venous Doppler US 02/27/25 Resulted Unilateral 15:53 Clindamycin 150mg Cap PHA 02/27/25 Complete (Cleocin 150mg Cap 19:00 Current Medications Medications (Trade) Dose Ordered Sig/Jean Route PRN Reason Start Time Stop Time Status Last Admin Dose Admin Clindamycin HCl (Cleocin 150mg Cap) 600 mg ONCE ONCE PO 02/27/25 19:00 02/27/25 19:01 DC 02/27/25 19:29 Vital Signs Date Time Temp Pulse Resp B/P (MAP) Pulse Ox O2 Delivery O2 Flow Rate FiO2 02/27/25 15:30 98.6 82 18 154/99 96 Room Air 0 2001/PATIENT DISCHARGED HOME WITH DIAGNOSIS ERYSIPELAS, LOADED WITH CLINDAMYCIN TOLD TO SEE HIS PRIMARY CARE DOCTOR IN 1-2 DAYS PAIN LACTIC ACID 1.1 NEUROVASCULAR CMS INTACT DISTALLY AND NO DVT. Medical Decision Making MDM MDM: DIFFERENTIAL DIAGNOSIS: DVT LEFT LEG/CELLULITIS/ERYSIPELAS/ELECTROLYTE IMBALANCE/DEHYDRATION RATIONALE: TESTS CONSIDERED AND ORDERED SECONDARY TO SHARED DECISION MAKING INCLUDE: RADIOLOGY/LABS PREVIOUS OUTSIDE RECORDS REVIEWED: OLD ER VISITS. RISK OF COMPLICATION AND/OR MORBIDITY OR MORTALITY OF PATIENT MANAGEMENT: NONE MEDICATIONS-PER MEDICATION RECONCILIATION NEED FOR HOSPITALIZATION: PATIENT DOES NOT MEET CRITERIA FOR HOSPITALIZATION. NO NEED FOR EMERGENCY MAJOR/MINOR SURGERY: NO THERE ARE NO SOCIAL CONCERNS WITH THIS PATIENT. PRESCRIPTION DRUG MANAGEMENT CLINDAMYCIN PRESCRIPTIONS WILL INCLUDE SYMPTOMATIC CARE PATIENT'S PRIOR EXTERNAL MEDICAL RECORDS FROM OTHER ER VISITS WERE REVIEWED BY ME INDICATED. PRIOR TESTING AND RESULTS FROM PREVIOUS VISITS WERE REVIEWED. PRIOR TESTS WERE TAKEN INTO ACCOUNT WITH MEDICAL DECISION MAKING AND RESOURCE UTILIZATION, INDEPENDENT HISTORIAN/HISTORIANS WERE USED TO OBTAIN COMPLETE MEDICAL HISTORY. I INDEPENDENTLY INTERPRETED THE TEST THAT WERE PERFORMED, RESULTS WERE REVIEWED BY ME AND CONSIDERED FINDINGS ON RADIOLOGY IF ORDERED. MEDICAL MANAGEMENT AND EXAMINATION INTERPRETATION DISCUSSIONS WERE HAD BY ME WITH OTHER QUALIFIED HEALTHCARE PROFESSIONALS INDICATED FOR THE PATIENT'S CARE. DX & DISP Disposition: Discharge Departure Impression: Primary Impression: Erysipelas of left lower extremity Additional Impressions: Hypokalemia, Morbid obesity Condition: Stable Scripts Clindamycin HCl (Clindamycin HCl) 300 Mg Capsule 1 CAP PO QID for 10 Days, #40 CAP 0 Refills Prov: KYRIE PATTERSON COMPLIANCE QUALITY PERFORMANCE ANALYST 02/27/25 Additional Instructions: FOLLOW-UP WITH PRIMARY CARE PROVIDER IN 1 TO 2 DAYS. TAKE MEDICATIONS DIRECTED HERE IN THE EMERGENCY ROOM. OKAY TO CONTINUE HOME MEDICATIONS UNLESS OTHERWISE DISCUSSED DURING YOUR VISIT IN THE EMERGENCY ROOM TODAY. RETURN TO YOUR NEAREST EMERGENCY ROOM IF SYMPTOMS WORSEN OR IF THERE IS NO IMPROVEMENT. CALL 911 IF YOU NEED IMMEDIATE ASSISTANCE. TAKE TYLENOL OR MOTRIN [id number] NEEDED AND IF NO CONTRAINDICATIONS ARE PRESENT. INCREASE ORAL HYDRATION. A WOUND CULTURE OR URINE CULTURE WAS ORDERED HERE IN THE EMERGENCY ROOM DEPARTMENT PLEASE FOLLOW-UP WITH PRIMARY CARE PROVIDER AND ADVISE THEM TO GET REPEAT PORTS FROM OUR FACILITY. IF YOU HAD ANY ADRIAN WRAP/SPLINTS DAYANNA T WERE APPLIED HERE, PLEASE DO NOT REMOVE THEM UNTIL YOU SEE YOUR PRIMARY CARE OR SPECIALTY. TAKE ANTIBIOTICS DIRECTED UNTIL GONE., WARM COMPRESSES TO LEG THREE TO 4 TIMES A DAY. KEEP LEG ELEVATED AND FOLLOW UP WITH YOUR PRIMARY CARE DOCTOR IN 1-2 DAYS Referrals: SELF,REFERRAL (PCP) Time of Disposition: 20:06 I have reviewed the case, and I agree with, Diagnosis and Plan KYRIE PATTERSON NP Feb 27, 2025 15:55
[2025-02-27 16:23] LABS: BASOPHILS # (AUTO) 0.05 K/uL (0.00-0.20); BASOPHILS % (AUTO) 0.4 % (0.0-5.0); EOSINOPHILS # (AUTO) 0.08 K/uL (0.00-0.70); EOSINOPHILS % (AUTO) 0.6 % (0.0-8.0); HEMATOCRIT 41.2 % (42-54); IMMATURE GRANULOCYTE ABSOLUTE 0.18 K/uL (0-1); LYMPHOCYTES # (AUTO) 1.4 K/uL (1.0-4.8); LYMPHOCYTES % (AUTO) 10.5 % (21.0-51.0); MEAN CORPUSCULAR HEMOGLOBIN 29.5 pg (27.0-33.0); MEAN CORPUSCULAR HGB CONC 33.5 g/dL (32.0-36.0); MONOCYTES # (AUTO) 0.8 K/uL (0.1-1.0); NEUTROPHILS # (AUTO) 10.6 K/uL (1.8-7.7); NEUTROPHILS % (AUTO) 81.1 % (40.0-77.0); PLATELET COUNT (AUTO) 195 K/uL (130-400); RED BLOOD CELL COUNT(AUTO) 4.68 MIL/uL (4.50-6.20); RED CELL DISTRIBUTION WIDTH 13.8 % (11.0-15.5)
[2025-02-27 16:37] LABS: CREATININE 0.9 mg/dL (0.5-1.3); POTASSIUM 3.4 mmol/L (3.5-5.1)
--- NOTE | 2025-02-27 17:03 | HMCIMG ---
US VENOUS DOPPLER UNILATERAL HISTORY: Left leg swelling COMPARISON: None TECHNIQUE: Left lower extremity venous Doppler ultrasound study was performed. FINDINGS: Left common femoral, femoral, popliteal, and posterior tibial veins are visualized. Normal flow with augmentation and compressibilities are demonstrated. Left greater saphenous vein is patent. The study is limited due to patient's large body habitus. IMPRESSION: 1. No evidence of deep venous thrombosis is seen.
[2025-02-27] MEDS: CLINDAMYCIN 150 MG CAP PO ONE (19:29)
[2025-02-27] MEDS ORDERED: CLIN-141 PO (20:06)
[2025-02-27 20:11] VITALS: BP 150/87; PULSE 80; RESP 18; TEMP 98.5; O2SAT 97
== END 2025-02-27 20:12 | disposition home or self-care (01) ==
LOC: EDH 15:26
DX: A46 Erysipelas (principal); E87.6 Hypokalemia; E66.01 Morbid (severe) obesity due to excess calories; I10 Essential (primary) hypertension; J45.909 Unspecified asthma, uncomplicated; Z79.899 Other long term (current) drug therapy; Z20.822 Contact with and (suspected) exposure to COVID-19
CPT/HCPCS: 36415; 80048; 83605; 85025; 87040; 93971; 99284